=== PATIENT | female | born 1955 | race Caucasian/White ===

== ENCOUNTER → 2016-10-17 | Outpatient (CLI) | payer OTHER ==
--- NOTE | 2016-10-17 10:22 | RADRPT ---
EXAM DATE/TIME: 10/17/2016 09:55 [facility] COMPARISON: No previous studies available for comparison. INDICATIONS : Cough. MEDICAL HISTORY : None. SURGICAL HISTORY : None. ENCOUNTER: Initial ACUITY: 2 weeks PAIN SCORE: 0/10 LOCATION: Bilateral upper chest FINDINGS: PA and lateral views of the chest demonstrate a normal-sized cardiac silhouette. There is no effusion , consolidation, or pneumothorax. The bones and soft tissues demonstrate no acute abnormality. CONCLUSION: No acute cardiopulmonary abnormality is identified. Mark Umaña MD on October 17, 2016 at 10:20 Board Certified Radiologist. This report was verified electronically.
--- NOTE | 2016-10-17 10:40 | RADRPT ---
EXAM DATE/TIME: 10/17/2016 09:57 [facility] COMPARISON: No previous studies available for comparison. INDICATIONS : Left ankle pain post fall 3 weeks ago. MEDICAL HISTORY : None. SURGICAL HISTORY : None. ENCOUNTER: Initial ACUITY: 3 weeks PAIN SCORE: 5/10 LOCATION: Left ankle FINDINGS: The ankle is intact without evidence of fracture or dislocation. Mineralization is normal. No articul ar abnormalities are evident. Tiny plantar heel spur is noted. The visualized hindfoot is otherwise u nremarkable. CONCLUSION: No acute bony process Mark Michaud MD on October 17, 2016 at 10:38 Board Certified Radiologist. This report was verified electronically.
--- NOTE | 2016-10-17 10:41 | RADRPT ---
EXAM DATE/TIME: 10/17/2016 09:59 [facility] COMPARISON: No previous studies available for comparison. INDICATIONS : Bilateral knee pain, post fall 3 weeks ago. MEDICAL HISTORY : None. SURGICAL HISTORY : None. ENCOUNTER: Initial ACUITY: 3 weeks PAIN SCORE: 5/10 LOCATION: Left FINDINGS: Four view examination of the left knee demonstrates no evidence of fracture or dislocation. Bony min eralization is normal. The articular surfaces are intact. The suprapatellar soft tissues have a nor mal configuration.CONCLUSION: Unremarkable examination of the left knee. Mark Michaud MD on October 17, 2016 at 10:38 Board Certified Radiologist. This report was verified electronically.
--- NOTE | 2016-10-17 10:47 | RADRPT ---
EXAM DATE/TIME: 10/17/2016 10:01 [facility] COMPARISON: KNEE LEFT COMPLETE (4VWS), October 17, 2016, 9:59. INDICATIONS : Bilateral knee pain post fall 3 weeks ago. MEDICAL HISTORY : hx torn meniscus SURGICAL HISTORY : None. ENCOUNTER: Initial ACUITY: 3 weeks PAIN SCORE: 5/10 LOCATION: Right knee FINDINGS: Four view examination of the right knee demonstrates no evidence of fracture or dislocation. Bony mi neralization is normal. The articular surfaces are intact. The suprapatellar soft tissues have a no rmal configuration. CONCLUSION: 1. No acute bony abnormality is identified. Chris Gore MD on October 17, 2016 at 10:41 Board Certified Radiologist. This report was verified electronically.
== END ==
LOC: HRAD 09:35
DX: M25.569 Pain in unspecified knee (principal); R05 Cough; M25.572 Pain in left ankle and joints of left foot
CPT/HCPCS: 71020; 73564; 73610

== ENCOUNTER → 2017-01-02 | Outpatient (CLI) | payer OTHER ==
--- NOTE | 2017-01-02 08:57 | RADRPT ---
EXAM DATE/TIME: 01/02/2017 08:31 [facility] COMPARISON: No previous studies available for comparison. INDICATIONS : Left side neck pain with numbness and tingling left arm. patient also c/o dizziness. This started aft er patient fell out of a chair. MEDICAL HISTORY : None. SURGICAL HISTORY : None. ENCOUNTER: Initial ACUITY: 4 - 6 months PAIN SCORE: 7/10 LOCATION: Left Cervical spine. FINDINGS: Two projection examination was performed. There is normal alignment and curvature of the vertebral b odies down to the level of C7. No evidence of fracture. Minimal anterolisthesis and mild degenerativ e changes at C4-5.. Vertebral body height is maintained. The disc spaces are maintained. The preve rtebral soft tissues are of normal thickness. The atlanto-axial articulation is intact. CONCLUSION: 1. Minimal degenerative changes and anterolisthesis C4-5. 2. No fracture. To Barnes MD on January 02, 2017 at 8:54 Board Certified Radiologist. This report was verified electronically.
== END ==
LOC: HRAD 08:13
DX: M54.2 Cervicalgia (principal)
CPT/HCPCS: 72040

== ENCOUNTER → 2017-01-06 | Outpatient (CLI) | payer OTHER ==
--- NOTE | 2017-01-06 13:02 | RADRPT ---
EXAM DATE/TIME: 01/06/2017 11:31 [facility] COMPARISON: ANKLE LEFT COMPLETE ([id number]), October 17, 2016, 9:57. INDICATIONS : Left ankle pain after fall 2 months ago. MEDICAL HISTORY : Diabetes mellitus type 2. SURGICAL HISTORY : Appendectomy. Cholecystectomy. Lumpectomy, right. ENCOUNTER: Subsequent ACUITY: 2 months PAIN SCORE: 2/10 LOCATION: Left ankle. TECHNIQUE: Multiplanar, multisequence MRI examination was performed without contrast. FINDINGS: BONE/CARTILAGE: Bone marrow signal is homogeneous. Articular cartilage signal is within normal limits. TENDONS: All of the visualized tendons are intact. LIGAMENTS: The lateral and medial ligament complexes are intact. MISCELLANEOUS: The plantar aponeurosis is intact. The tarsal tunnel is within normal limits. There is a tiny ankle joint effusion. CONCLUSION: 1. Tiny ankle joint effusion. 2. Otherwise unremarkable MRI of the left ankle. Jd Vickers MD on January 06, 2017 at 12:58 Board Certified Radiologist. This report was verified electronically.
== END ==
LOC: PHRAD 10:11
DX: M25.572 Pain in left ankle and joints of left foot (principal)
CPT/HCPCS: 73721

== ENCOUNTER 2017-05-03 12:18 | Emergency (ER) | payer OTHER ==
[~2017-05-03] VITALS: Ht 170.2 cm; Wt 59.0 kg
[2017-05-03 12:20] VITALS: BP 173/79; PULSE 116; RESP 20; TEMP 99.1; O2SAT 96
[2017-05-03] MEDS ORDERED: OMEP20TA93 PO (12:53)
[2017-05-03] MEDS ORDERED: NOVORP2 SQ (12:53)
[2017-05-03] MEDS ORDERED: METF1000 PO (12:53)
[2017-05-03] MEDS ORDERED: ATOR20TA15 PO (12:53)
[2017-05-03] MEDS ORDERED: LISI-519 PO (12:53)
[2017-05-03] MEDS ORDERED: SODIUM CHLOR 0.9% 1000 ML INJ 1,000 ML IV SCH (12:57)
[2017-05-03] MEDS ORDERED: SODIUM CHLORIDE 0.9% FLUSH 10 ML FLUSH IV FLUSH PRN (13:00)
--- NOTE | 2017-05-03 13:11 | PD ---
HPI Chief Complaint: GI Complaint Time Seen by Provider: 12:43 Travel History International Travel<30 days: No Contact w/Intl Traveler<30days: No Traveled to known affect area: No History of Present Illness HPI This is a 62-year-old female who presents to the emergency department with 4 days of vomiting and diarrhea. She says on Thursday of this week she started to have vomiting, intermittent, moderate severity with difficulty keeping things down. About 24 hours later she developed diarrhea. She says she's been having multiple stools per day, constant, watery, associated with some epigastric abdominal discomfort. She says her stools have been black in the past day. She did take some Pepto-Bismol at home. She has been told that she may have an ulcer and she takes omeprazole. She also has had some subjective fevers and chills throughout her illness. She says her vomiting is currently subsided but she's had 4 watery bowel movements this morning. She denies any recent travel or sick contacts. She denies any recent antibiotic use. PFSH Past Medical History Hx Anticoagulant Therapy: No High Cholesterol: Yes GERD: Yes Hypertension: Yes Tetanus Vaccination: Unknown Influenza Vaccination: No Past Surgical History Section: Yes Social History Alcohol Use: No Tobacco Use: No Substance Use: No Allergies-Medications (Allergen,Severity, Reaction): Coded Allergies: No Known Allergies (Unverified , 05/03/17) Reported Meds & Prescriptions Reported Meds & Active Scripts Active Reported Novolin R Inj (Insulin Human Regular) 1,000 Unit/10 Ml Vial 0 SQ DIRECTED Sliding Scale As Directed. Atorvastatin (Atorvastatin Calcium) 20 Mg Tab 20 Mg PO HS Omeprazole 20 Mg Tab 20 Mg PO DAILY Lisinopril 5 Mg Tab 5 Mg PO DAILY Metformin (Metformin HCl) 1,000 Mg Tab 1,000 Mg PO BIDPC Review of Systems Except as stated in HPI: all other systems reviewed are Neg Physical Exam Narrative GENERAL:Well appearing, no acute distress SKIN: Dry with skin tenting. HEAD: Atraumatic. Normocephalic. EYES: Pupils equal and round. No injection or drainage. ENT: Dry mucous membranes. NECK: Trachea midline. CARDIOVASCULAR: Regular rate and rhythm. No murmur appreciated. RESPIRATORY: Clear to auscultation. Breath sounds equal bilaterally. GASTROINTESTINAL: Abdomen soft, tender to palpation in the epigastrium with no rebound or guarding. MUSCULOSKELETAL: No obvious deformities. NEUROLOGICAL: Awake and alert. No obvious cranial nerve deficits. Moving all extremities. PSYCHIATRIC: Appropriate mood and affect; insight and judgment normal. Data Data Last Documented VS Vital Signs Date Time Temp Pulse Resp B/P (MAP) Pulse Ox O2 Delivery O2 Flow Rate FiO2 05/03/17 12:20 99.1 116 20 173/79 (110) 96 Room Air Orders Orders Complete Blood Count With Diff (05/03/17 12:57) Comprehensive Metabolic Panel (05/03/17 12:57) Lipase (05/03/17 12:57) Urinalysis - C+S If Indicated (05/03/17 12:57) Iv Access Insert/Monitor (05/03/17 12:57) Ecg Monitoring (05/03/17 12:57) Oximetry (05/03/17 12:57) Sodium Chlor 0.9% 1000 Ml Inj (Ns 1000 M (05/03/17 12:57) Sodium Chloride 0.9% Flush (Ns Flush) (05/03/17 13:00) MDM Medical Decision Making Medical Screen Exam Complete: Yes Emergency Medical Condition: Yes Differential Diagnosis Gastroenteritis, upper GI bleed, colitis, anemia Narrative Course This is a 62-year-old female who presents to the emergency department with nausea, vomiting and diarrhea. She says for one day her stool has been black. She has a fairly benign abdominal exam with some mild epigastric discomfort. I suspect this reflects a gastroenteritis. I don't think she requires any CT imaging based on her exam alone. Labs will be obtained. If the patient has a leukocytosis of 13 or above I would consider CT imaging. Hemoccult should be obtained. If positive we should consider admitting the patient for GI bleed. If labs are reassuring and Hemoccult is reassuring patient can be discharged with Imodium, Zofran and instructions for IV hydration and a Brat diet. Henrietta Caicedo MD May 03, 2017 13:11
[2017-05-03 13:15] VITALS: RESP 18; O2SAT 98
--- NOTE | 2017-05-03 13:26 | PD ---
Physical Exam Date Seen by Provider: May 03, 2017 Time Seen by Provider: 13:24 Narrative 62-year-old female presents to the emergency department for evaluation of nausea , vomiting, diarrhea for 4 days. She does report some dark stools. She denies being on any antibiotics. Patient was seen by Dr. Caicedo and workup has been initiated. RECTAL EXAM: No masses or tenderness, stool is dark. Hemoccult is negative. This exam was done with RN at bedside. Data Data Last Documented VS Vital Signs Date Time Temp Pulse Resp B/P (MAP) Pulse Ox O2 Delivery O2 Flow Rate FiO2 05/03/17 13:15 18 98 Room Air 05/03/17 12:20 99.1 116 Orders Orders Complete Blood Count With Diff (05/03/17 12:57) Comprehensive Metabolic Panel (05/03/17 12:57) Lipase (05/03/17 12:57) Urinalysis - C+S If Indicated (05/03/17 12:57) Iv Access Insert/Monitor (05/03/17 12:57) Ecg Monitoring (05/03/17 12:57) Oximetry (05/03/17 12:57) Sodium Chlor 0.9% 1000 Ml Inj (Ns 1000 M (05/03/17 12:57) Sodium Chloride 0.9% Flush (Ns Flush) (05/03/17 13:00) Ct Abd/Pel W Iv Contrast(Rout) (05/03/17 ) Blood Culture (05/03/17 15:20) Lactic Acid Sepsis Protocol (05/03/17 15:20) Acetaminophen (Tylenol) (05/03/17 16:00) Iohexol 350 Inj (Omnipaque 350 Inj) (05/03/17 16:19) Labs Laboratory Tests Test 05/03/17 13:24 05/03/17 15:32 05/03/17 16:00 White Blood Count 11.7 TH/MM3 Red Blood Count 4.67 MIL/MM3 Hemoglobin 13.4 GM/DL Hematocrit 38.9 % Mean Corpuscular Volume 83.2 FL Mean Corpuscular Hemoglobin 28.6 PG Mean Corpuscular Hemoglobin Concent 34.4 % Red Cell Distribution Width 13.1 % Platelet Count 444 TH/MM3 Mean Platelet Volume 7.0 FL Neutrophils (%) (Auto) 63.3 % Lymphocytes (%) (Auto) 22.1 % Monocytes (%) (Auto) 12.9 % Eosinophils (%) (Auto) 1.0 % Basophils (%) (Auto) 0.7 % Neutrophils # (Auto) 7.4 TH/MM3 Lymphocytes # (Auto) 2.6 TH/MM3 Monocytes # (Auto) 1.5 TH/MM3 Eosinophils # (Auto) 0.1 TH/MM3 Basophils # (Auto) 0.1 TH/MM3 CBC Comment AUTO DIFF Differential Total Cells Counted 100 Neutrophils % (Manual) 58 % Band Neutrophils % 10 % Lymphocytes % 22 % Monocytes % 8 % Neutrophils # (Manual) 8.2 TH/MM3 Metamyelocytes 1 % Myelocytes 1 % Differential Comment FINAL DIFF MANUAL Platelet Estimate HIGH Platelet Morphology Comment NORMAL Blood Urea Nitrogen 11 MG/DL Creatinine 0.67 MG/DL Random Glucose 140 MG/DL Total Protein 8.2 GM/DL Albumin 3.7 GM/DL Calcium Level 9.4 MG/DL Alkaline Phosphatase 91 U/L Aspartate Amino Transf (AST/SGOT) 26 U/L Alanine Aminotransferase (ALT/SGPT) 32 U/L Total Bilirubin 0.5 MG/DL Sodium Level 134 MEQ/L Potassium Level 3.7 MEQ/L Chloride Level 99 MEQ/L Carbon Dioxide Level 24.0 MEQ/L Anion Gap 11 MEQ/L Estimat Glomerular Filtration Rate 89 ML/MIN Lipase 93 U/L Lactic Acid Level 0.9 mmol/L Urine Color YELLOW Urine Turbidity CLEAR Urine pH 5.5 Urine Specific [place] 1.017 Urine Protein 30 mg/dL Urine Glucose (UA) NEG mg/dL Urine Ketones 40 mg/dL Urine Occult Blood NEG Urine Nitrite NEG Urine Bilirubin NEG Urine Urobilinogen LESS THAN 2.0 MG/DL Urine Leukocyte Esterase TRACE Urine RBC 0-3 /hpf Urine WBC 0-2 /hpf Urine Squamous Epithelial Cells 0-5 /hpf Urine Bacteria FEW /hpf Urine Mucus MOD /lpf Microscopic Urinalysis Comment CULT NOT INDICATED MDM Medical Record Reviewed: Yes Supervised Visit with CECILIA: No Interpretation(s) Last Impressions Abdomen/Pelvis CT 05/03/17 0000 Signed Impressions: Service Date/Time: Wednesday, May 03, 2017 16:06 - CONCLUSION: Mild colitis. Gulshan Casillas MD Differential Diagnosis Gastroenteritis versus pancreatitis versus versus upper GI bleed versus colitis Narrative Course 62-year-old female presents to the emergency department for reevaluation nausea , vomiting, diarrhea. Vomiting has resolved, but reports ongoing diarrhea. Abdominal exam is benign. Hemoccult is negative. CBC, CMP, lipase, UA are ordered and pending. Patient is given normal saline 1 L IV bolus. CBC shows leukocytosis 11.7, band neutrophils of 10. CMP shows no acute abnormality. Lipase is 93. UA shows trace leukocyte, few bacteria. Due to elevated band neutrophils, CT abdomen/pelvis with IV contrast, lactic acid, blood cultures 2 are ordered and pending. CT abdomen/pelvis shows mild colitis. Lactic acid is 0.9. I discussed results attending physician, Dr. Caicedo. Patient will be discharged prescription for Flagyl and Cipro for colitis. Patient verbalizes agreement and understanding. The patient was discharged in stable condition with instructions, including return instructions and follow up instructions. Diagnosis Primary Impression: Colitis Referrals: Primary Care Physician call for appointment Patient Instructions: Colitis (ED), General Instructions Additional Instruction: [place] diet. Take antibiotics as directed until gone. Do not drink alcohol while on Flagyl. Follow-up with your primary care physician. Return to the emergency department for any acute worsening of symptoms. Med/Other Pt SpecificInfo: Prescription(s) given Scripts Ciprofloxacin (Cipro) 500 Mg Tab 500 MG PO BID for Infection for 10 Days, #20 TAB 0 Refills Prov: Yolanda Santana 05/03/17 Metronidazole (Flagyl) 500 Mg Tab 500 MG PO TID for Infection for 10 Days, TAB 0 Refills Prov: Yolanda Santana 05/03/17 Disposition: 01 DISCHARGE HOME Condition: Stable Yolanda Santana May 03, 2017 13:26
[2017-05-03 13:29] LABS: AUTOMATED NEUTROPHIL # 7.4 TH/MM3 (1.8-7.7); BASOPHIL # 0.1 TH/MM3 (0-0.2); BASOPHIL % 0.7 % (0.0-2.0); EOSINOPHIL # 0.1 TH/MM3 (0-0.4); HEMATOCRIT 38.9 % (35.0-46.0); LYMPH % 22.1 % (9.0-44.0); LYMPHOCYTE # 2.6 TH/MM3 (1.0-4.8); MEAN CELL VOLUME 83.2 FL (80.0-100.0); MEAN CORPUSCULAR HEMOGLOBIN 28.6 PG (27.0-34.0); MEAN CORPUSCULAR HGB CONC 34.4 % (32.0-36.0); MONO % 12.9 % (0.0-8.0); NEUT % 63.3 % (16.0-70.0); PLATELET COUNT 444 TH/MM3 (150-450); RED BLOOD COUNT 4.67 MIL/MM3 (4.00-5.30); RED CELL DISTRIBUTION WIDTH 13.1 % (11.6-17.2); WHITE BLOOD COUNT 11.7 TH/MM3 (4.0-11.0)
[2017-05-03 13:35] LABS: HEMO FLAGS AUTO DIFF
[2017-05-03 13:48] LABS: ALKALINE PHOSPHATASE 91 U/L (45-117); TOTAL BILIRUBIN ADULT 0.5 MG/DL (0.2-1.0)
[2017-05-03 13:58] LABS: ALT (GPT) 32 U/L (10-53); ANION GAP 11 MEQ/L (5-15); AST (GOT) 26 U/L (15-37); BLOOD UREA NITROGEN 11 MG/DL (7-18); CHLORIDE 99 MEQ/L (98-107); GLOMERULAR FILTRATION RATE 89 ML/MIN (>89); SODIUM (NA) 134 MEQ/L (136-145)
[2017-05-03 14:05] LABS: BANDS 10 % (0-6); METAMYELOCYTES 1 % (0-1); MYELOCYTES 1 % (0-0); NEUTROPHIL # MANUAL DIFF 8.2 TH/MM3 (1.8-7.7); PLATELET ESTIMATE SMEAR HIGH (NORMAL); PLATELET MORPHOLOGY NORMAL (NORMAL); POLYS (SEG NEUTROPHILS) 58 % (16-70); WBC DIFF SAMPLE 100
[2017-05-03 14:06] LABS: SCAN/DIFF FINAL DIFF MANUAL
[2017-05-03 14:31] LABS: POTASSIUM 3.7 MEQ/L (3.5-5.1)
[2017-05-03] MEDS ORDERED: ACETAMINOPHEN 325 MG TAB PO ONE (16:00)
[2017-05-03] MEDS ORDERED: IOHEXOL 350 MG/ML 10 ML VIAL (for RAD DIAG) IVCONTRAST ONE (16:19)
--- NOTE | 2017-05-03 16:25 | RADRPT ---
EXAM DATE/TIME: 05/03/2017 16:06 [facility] COMPARISON: No previous studies available for comparison. INDICATIONS : Lower abdomen pain for five days. IV CONTRAST: 97 cc Omnipaque 350 (iohexol) IV ORAL CONTRAST: No oral contrast ingested. RADIATION DOSE: 7.27 CTDIvol (mGy) MEDICAL HISTORY : Gastroesophageal reflux disease. Hypertension. SURGICAL HISTORY : None. ENCOUNTER: Initial ACUITY: 4 - 6 days PAIN SCALE: 6/10 LOCATION: Bilateral lower quadrant TECHNIQUE: Volumetric scanning of the abdomen and pelvis was performed. Using automated exposure control and ad justment of the mA and/or kV according to patient size, radiation dose was kept as low as reasonably achievable to obtain optimal diagnostic quality images. DICOM format image data is available electro nically for review and comparison. FINDINGS: No pleural effusions. Trace pericardial effusion. There are scattered small cysts in the liver. Norma cystectomy clips are identified. The spleen, pancreas, adrenal glands, bilateral kidneys are normal i n appearance. The urinary bladder, uterus and adnexa are unremarkable. There is mild diffuse wall thi ckening of the colon greatest at the level of the ascending colon with mild induration of the pericol onic fat and subcentimeter lymph nodes in the right lower quadrant. This can be seen with colitis. Th ere is no evidence of bowel obstruction. Degenerative changes of the spine are noted. Atelectatic maureen nges in the dependent portions of both lungs. Osseous structures are intact. CONCLUSION: Mild colitis. Gulshan Casillas MD on May 03, 2017 at 16:22 Board Certified Radiologist. This report was verified electronically.
[2017-05-03 16:53] LABS: BLOOD, URINE NEG (NEG); GLUCOSE,URINE NEG (NEG); KETONE, URINE 40 mg/dL (NEG); NITRITE,URINE NEG (NEG); PH, URINE 5.5 (5.0-8.5); URINE COLOR YELLOW (YELLW/STRAW)
[2017-05-03 17:00] LABS: MUCUS URINE MOD /lpf (OCC); RBC, URINE 0-3 /hpf (0-3); WBC, URINE 0-2 /hpf (0-5)
[2017-05-03 17:01] LABS: BACTERIA, URINE FEW /hpf; COMMENT (UR) CULT NOT INDICATED; CULTURE IF INDICATED CULT NOT INDICATED; SQUAMOUS EPITHELIAL CELL URINE 0-5 /hpf (0-5)
[2017-05-03] MEDS ORDERED: METR-1 PO (17:07)
[2017-05-03] MEDS ORDERED: CIPR-9 PO (17:07)
[2017-05-03] MEDS ORDERED: metroNIDAZOLE 500 MG TAB PO ONE (17:15)
[2017-05-03] MEDS ORDERED: CIPROFLOXACIN 500 MG TAB PO ONE (17:15)
[2017-05-03 18:00] VITALS: RESP 17
[2017-05-03 18:14] VITALS: BP 124/78; TEMP 97.8
== END 2017-05-03 18:15 | disposition home or self-care (01) ==
LOC: NEPD 12:18
DX: K52.9 Noninfective gastroenteritis and colitis, unspecified (principal); D72.829 Elevated white blood cell count, unspecified; E78.00 Pure hypercholesterolemia, unspecified; K21.9 Gastro-esophageal reflux disease without esophagitis; I10 Essential (primary) hypertension; Z79.4 Long term (current) use of insulin; Z79.899 Other long term (current) drug therapy
CPT/HCPCS: 74177; 80053; 81001; 83605; 83690; 85007; 85027; 87040; 96360; 96361; 99285; J7030; Q9967

== ENCOUNTER → 2017-05-22 | Outpatient (CLI) | payer OTHER ==
[~2017-05-22] MED LIST: AMIT10TA6 PO; ASPI81CH6 CHEW; ATOR20TA15 PO; CIPR-9 PO; FISHCAP4 PO; LACTCAP8 PO; LISI-519 PO; METF1000 PO; METR-1 PO; NOVORP2 SQ; OMEP20TA93 PO
--- NOTE | 2017-05-22 12:35 | RADRPT ---
EXAM DATE/TIME: 05/22/2017 12:23 [facility] COMPARISON: CT ABDOMEN & PELVIS W CONTRAST, May 03, 2017, 16:06. INDICATIONS : Left sided abdominal pain, history of diverticulitis. ORAL CONTRAST: No oral contrast ingested. RADIATION DOSE: 6.63 CTDIvol (mGy) MEDICAL HISTORY : Hypertension. Acid reflux SURGICAL HISTORY : None. ENCOUNTER: Initial ACUITY: 3 weeks PAIN SCALE: 6/10 LOCATION: Left lower quadrant TECHNIQUE: Volumetric scanning of the abdomen and pelvis was performed. Using automated exposure control and ad justment of the mA and/or kV according to patient size, radiation dose was kept as low as reasonably achievable to obtain optimal diagnostic quality images. DICOM format image data is available electro nically for review and comparison. FINDINGS: LOWER LUNGS: The visualized lower lungs are clear. LIVER: Homogeneous density without lesion. There is no dilation of the biliary tree. Post cystectomy clips . Hepatic low densities. SPLEEN: Normal size without lesion. PANCREAS: Within normal limits. KIDNEYS: Normal in size and shape. There is no mass, stone, or hydronephrosis. ADRENAL GLANDS: Within normal limits. VASCULAR: There is no aortic aneurysm. BOWEL/MESENTERY: The stomach, small bowel, and colon demonstrate no acute abnormality. There is no free intraperitone al air or fluid. ABDOMINAL WALL: Within normal limits. RETROPERITONEUM: There is no lymphadenopathy. BLADDER: No wall thickening or mass. REPRODUCTIVE: Within normal limits. INGUINAL: There is no lymphadenopathy or hernia. MUSCULOSKELETAL: Within normal limits for patient age. CONCLUSION: 1. No acute process. 2. Hepatic low densities. 3. No evidence for diverticulitis. To Barnes MD on May 22, 2017 at 12:31 Board Certified Radiologist. This report was verified electronically.
== END ==
LOC: HRAD 11:35
DX: K57.32 Diverticulitis of large intestine without perforation or abscess without bleeding (principal)
CPT/HCPCS: 74176

== ENCOUNTER → 2017-10-14 | Outpatient (CLI) | payer OTHER ==
[~2017-10-14] MED LIST changes: -CIPR-9 PO; -METR-1 PO
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
== END ==
LOC: HRAD 12:40
DX: M25.552 Pain in left hip (principal)
CPT/HCPCS: 72110; 73502